=== PATIENT | male | born 1970 | race Caucasian/White ===

== ENCOUNTER 2020-05-09 18:18 | Emergency (ER) | payer OTHER ==
[~2020-05-09] VITALS: Ht 188 cm; Wt 127.0 kg
== END 2020-05-09 20:52 | disposition home or self-care (01) ==
LOC: ER 18:18
DX: L03.032 Cellulitis of left toe (principal); I10 Essential (primary) hypertension

== ENCOUNTER 2020-05-10 10:27 | Emergency (ER) | payer OTHER ==
[~2020-05-10] VITALS: Ht 188 cm; Wt 127.0 kg
== END 2020-05-10 11:50 | disposition home or self-care (01) ==
LOC: ER 10:27
DX: L60.0 Ingrowing nail (principal)